=== PATIENT | male | born 1990 | race Two or more races ===

== ENCOUNTER 2018-03-19 09:30 | Emergency (ER) | payer SELFPAY ==
[~2018-03-19] VITALS: Ht 165.1 cm; Wt 88.0 kg
[2018-03-19] MEDS ORDERED: METRONIDAZOLE 500 MG TABLET PO ONE (10:15)
[2018-03-19] MEDS ORDERED: IBUPROFEN 600 MG TABLET PO ONE (10:15)
[2018-03-19] MEDS ORDERED: LIDOCAINE 1%-EPI 1:100,000 20 ML VIAL TP ONE (10:15)
[2018-03-19] MEDS ORDERED: DOXYCYCLINE HYCLATE 100 MG TABLET PO ONE (10:15)
[2018-03-19] MEDS ORDERED: IBUPROFEN 600 MG TABLET ONE (10:19)
[2018-03-19] MEDS ORDERED: DOXYCYCLINE HYCLATE 100 MG TABLET ONE (10:20)
[2018-03-19] MEDS ORDERED: METRONIDAZOLE 500 MG TABLET ONE (10:21)
[2018-03-19] MEDS ORDERED: LIDOCAINE 1%-EPI 1:100,000 20 ML VIAL ONE (12:33)
--- NOTE | 2018-03-19 12:44 | NUR ---
PT WAS EVALUATED BY DR HERNANDEZ. PT WAS D/C'd TO HOME. D/C INSTRUCTIONS GIVEN TO THE PT.
[2018-03-19 12:46] VITALS: BP 129/78
== END 2018-03-19 12:47 | disposition home or self-care (01) ==
LOC: ER 09:32
DX: S01.511A Laceration without foreign body of lip, initial encounter (principal); S01.551A Open bite of lip, initial encounter; Z88.0 Allergy status to penicillin; W54.0XXA Bitten by dog, initial encounter; Y93.89 Activity, other specified; Y92.89 Other specified places as the place of occurrence of the external cause; Y99.8 Other external cause status
CPT/HCPCS: A4663; J3490